=== PATIENT | female | born 1990 | race Caucasian/White ===

== ENCOUNTER 2019-01-27 15:43 | Outpatient (CLI) | payer OTHER | END 2019-01-27 23:59 | disposition home or self-care (01) | LOC: CFH 15:43 | PROVIDERS: ATTEND Internal Medicine Cardiovascular Disease | DX: I07.1 Rheumatic tricuspid insufficiency (principal); I95.1 Orthostatic hypotension | CPT/HCPCS: 93306 ==

== ENCOUNTER 2019-08-12 18:13 | Emergency (ER) | payer OTHER ==
[~2019-08-12] VITALS: Ht 170.2 cm; Wt 62.9 kg
[2019-08-12 18:46] VITALS: BP 107/73
[2019-08-12] MEDS ORDERED: LIDOCAINE 2%, 20ML SQ ONE (19:00)
[2019-08-12] MEDS ORDERED: LIDOCAINE-MPF 2% ,5ML ONE (19:04)
--- NOTE | 2019-08-12 19:06 | NUR ---
PA AT BEDSIDE FOR SUTURES AT THIS TIME
[2019-08-12] MEDS ORDERED: NEOSPORIN OINT. PKT 1 PACKET ONE (19:56)
== END 2019-08-12 20:07 | disposition home or self-care (01) ==
LOC: ED 19:12
DX: S91.011A Laceration without foreign body, right ankle, initial encounter (principal); W23.0XXA Caught, crushed, jammed, or pinched between moving objects, initial encounter; Y93.89 Activity, other specified; Y92.89 Other specified places as the place of occurrence of the external cause; Y92.512 Supermarket, store or market as the place of occurrence of the external cause; Y99.8 Other external cause status
CPT/HCPCS: 12002; 12013; 99282